=== PATIENT | male | born 1960 | race Caucasian/White ===

== ENCOUNTER 2018-04-18 13:12 | Outpatient (CLI) | payer BC | END 2018-04-18 13:13 | disposition home or self-care (01) | LOC: BICRAD 13:12 | PROVIDERS: ATTEND Family Medicine | DX: S46.912A Strain of unspecified muscle, fascia and tendon at shoulder and upper arm level, left arm, initial encounter (principal); M19.012 Primary osteoarthritis, left shoulder ==

== ENCOUNTER 2018-05-17 10:07 | Day surgery (SDC) | payer BC ==
[2018-05-16 12:03] VITALS: BMI 27.2
[2018-05-17] MEDS ORDERED: Midazolam HCl 2 mg/2 ml Vial ONE (11:53)
--- NOTE | 2018-05-17 13:58 | MRI ---
CERVICAL SPINE MRI NONCONTRAST: INDICATION: Cervical spine pain, radiculopathy. FINDINGS: Cervical spine vertebral body heights are maintained. There is no acute marrow edema or significant subluxation. Craniocervical junction is intact. No high-grade central canal stenosis at C1-2 or C2- 3 level. There is mild left subarticular zone narrowing at the C2-3 level due to osteophyte formatio n. C3-4: Mild disk-osteophyte formation is seen with effacement of the ventral thecal sac. There is mi ld left foraminal narrowing with crowding of the left C4 nerve root. No high-grade right foraminal s tenosis. C4-5: There is disk-osteophyte complex formation effacing the ventral thecal sac. Moderate left for aminal stenosis does crowd the left C5 nerve root. There is mild right foraminal narrowing. C5-6: Broad-based disk-osteophyte results in moderate central canal stenosis and ventral cord efface ment. There is also moderate bilateral neural foraminal stenosis. C6-7: Moderate narrowing of the central canal due to disk-osteophyte formation. There is moderate t o severe left and mild right neural foraminal stenosis on the basis of disk-osteophyte and uncinate p rocess hypertrophy. C7-T1: No significant compromise of central canal or neural foraminal narrowing. There is multilevel bilateral facet hypertrophy. No intrinsic cord signal abnormality of the cervical spine identified. IMPRESSION: Multilevel moderate degenerative change throughout the cervical spine as outlined above. POS: [facility]
--- NOTE | 2018-05-17 14:01 | MRI ---
NONCONTRAST MRI LUMBAR SPINE: Date: 05-17-18 History: Low back pain for 6-7 years. Patient has low back pain with radiculopathy. Comparison: None available. FINDINGS: There is a subcentimeter increased T2 weighted signal intensity focus in the superior pole right kidn ey which is difficult to further characterize due to small size but statistically likely represents a small cyst. Remainder of the retroperitoneal structures demonstrate a normal MRI appearance. Conus medullaris is normal in appearance and terminates at the level of the L1 vertebral body. Normal signal intensity is demonstrated in the bone marrow. L1-2: There is no disc bulge or disc herniation. Central spinal canal and neural foramina are patent. L2-3: There is no significant disc bulge or disc herniation. Central spinal canal and neural foramina are patent. L3-4: There is no significant disc bulge or disc herniation. There are facet hypertrophic changes pre sent at this level. There is minimal narrowing of the left neural foramen. The right neural foramen i s patent. L4-5: There is a broad based disc osteophyte complex with a small central disc protrusion. Increased T2 weighted signal intensity is seen along the posterior central margin of the intervertebral disc. F acet hypertrophic changes and mild ligamentous thickening are noted. There is moderate narrowing of t he central spinal canal with mild left sided neural foraminal narrowing. The right neural foramen is patent. L5-S1: There is no significant disc bulge or disc herniation. There are facet hypertrophic changes at this level, greater on the left. Minimal mass effect on the lateral aspect of the thecal sac without significant narrowing of the central spinal canal. There is minimal encroachment on each neural fora men due to the facet hypertrophic changes. There is an increased T2 weighted signal intensity just anterior to the L2-3 level which may represen t small nonspecific lymph nodes in this region. IMPRESSION: 1. Disc degenerative changes at the L4-5 level with moderate narrowing of the central spinal canal. POS: [facility]
== END 2018-05-17 14:35 | disposition home or self-care (01) ==
LOC: SDC/OP 10:07 → EDSTATUS 12:00 → SDC/OP 14:35
PROVIDERS: ATTEND Specialist
DX: M51.17 Intervertebral disc disorders with radiculopathy, lumbosacral region (principal); M48.061 Spinal stenosis, lumbar region without neurogenic claudication; M48.02 Spinal stenosis, cervical region; E11.9 Type 2 diabetes mellitus without complications; E78.5 Hyperlipidemia, unspecified; G89.29 Other chronic pain; F17.220 Nicotine dependence, chewing tobacco, uncomplicated; Z79.82 Long term (current) use of aspirin; Z79.899 Other long term (current) drug therapy; Z79.84 Long term (current) use of oral hypoglycemic drugs
CPT/HCPCS: 72141; 72148; J2250

== ENCOUNTER 2019-02-07 10:04 | Inpatient (IN) | payer BC ==
[2019-01-31 09:32] VITALS: BMI 25.1
[2019-02-07] MEDS ORDERED: Ketorolac Tromethamine 30 MG/ML VIAL ONE (11:16)
[2019-02-07] MEDS ORDERED: Glycopyrrolate 0.2 MG/ML 5 ML SYRINGE ONE (11:16)
[2019-02-07] MEDS ORDERED: Dexamethasone 20 MG/5 ML VIAL ONE (11:16)
[2019-02-07] MEDS ORDERED: Rocuronium Bromide 10 MG/ML (10ML VIAL) ONE (11:16)
[2019-02-07] MEDS ORDERED: PROPOFOL 200 MG/20 ML VIAL ONE (11:16)
[2019-02-07] MEDS ORDERED: Ondansetron PF 4 MG/2 ML Vial ONE (11:16)
[2019-02-07] MEDS ORDERED: ePHEDrine 50 MG/ML VIAL ONE (11:16)
[2019-02-07] MEDS ORDERED: Lidocaine 1% PF 5 ML VIAL ONE (11:16)
[2019-02-07] MEDS ORDERED: PHENYLEPHRINE-NS 100 MCG/ML 10 ML SYRINGE ONE (11:16)
[2019-02-07] MEDS ORDERED: Thrombin 5000 UNITS/5 ML VIAL ONE ×2 (12:18→12:47)
[2019-02-07] MEDS ORDERED: Sodium Chloride 0.9% 10 ML ONE (12:44)
[2019-02-07] MEDS ORDERED: Fentanyl 100 MCG/2 ML VIAL ONE ×3 (13:49→20:11)
[2019-02-07] MEDS ORDERED: Morphine 4 MG/ML VIAL SLOW IVP PRN (16:30)
[2019-02-07] MEDS ORDERED: HYDROcodone/Acetaminophen 7.5/325 mg Tablet PO PRN (16:30)
[2019-02-07] MEDS ORDERED: Promethazine HCl 25 MG/ML VIAL IM PRN ×2 (16:30→16:31)
[2019-02-07] MEDS ORDERED: Mag-Al 1200 mg/1200 mg/30 ML UDCUP PO PRN (16:30)
[2019-02-07] MEDS ORDERED: Acetaminophen/Codeine 30-300mg Tablet PO PRN (16:30)
[2019-02-07] MEDS ORDERED: Fleet Enema 133 ML BOT PR PRN (16:30)
[2019-02-07] MEDS ORDERED: Milk Of Magnesia 30 ML UDCUP PO PRN (16:30)
[2019-02-07] MEDS ORDERED: Bisacodyl 10 MG SUPP PR PRN (16:30)
[2019-02-07] MEDS ORDERED: Acetaminophen 325 MG TAB PO PRN (16:30)
[2019-02-07] MEDS ORDERED: Promethazine HCl 25 MG/ML VIAL SLOW IVP PRN (16:31)
[2019-02-07] MEDS ORDERED: HYDROmorphone 2 MG/ML VIAL SLOW IVP PRN (16:31)
[2019-02-07] MEDS ORDERED: Ondansetron HCl/PF 4 MG/2 ML Vial IVP PRN (16:31)
[2019-02-07] MEDS ORDERED: Meperidine HCl/PF 25 MG/ML VIAL SLOW IVP PRN (16:31)
[2019-02-07] MEDS ORDERED: tiZANidine HCl 4 MG TAB ONE (18:45)
[2019-02-07] MEDS ORDERED: CEFAZOLIN 2 GM in Premix Bag 1 BAG IVPB SCH (20:00)
[2019-02-07] MEDS ORDERED: Gabapentin 300 MG CAP PO SCH (21:00)
[2019-02-07] MEDS ORDERED: Tamsulosin HCl 0.4 MG CAP PO SCH (21:00)
[2019-02-07] MEDS ORDERED: Lisinopril 2.5 MG TAB PO SCH (21:00)
[2019-02-07] MEDS ORDERED: Pravastatin Sodium 40 MG TAB PO SCH (21:00)
[2019-02-07] MEDS ORDERED: Finasteride 5 MG TAB PO SCH (21:00)
[2019-02-07] MEDS: Sodium Chloride 0.9% 1,000 ML IV SCH (21:47)
[2019-02-07] MEDS: metFORMIN 500 MG TAB PO SCH (22:03)
[2019-02-07] MEDS: CEFAZOLIN 2 GM in Premix Bag 1 BAG IVPB SCH (22:05)
[2019-02-07] MEDS: traMADol HCl 50 MG TAB PO PRN (23:43)
[2019-02-07] MEDS: tiZANidine HCl 4 MG TAB PO PRN (23:43)
[2019-02-08] MEDS: Sodium Chloride 0.9% 1,000 ML IV SCH (05:44)
[2019-02-08] MEDS: CEFAZOLIN 2 GM in Premix Bag 1 BAG IVPB SCH (06:04)
[2019-02-08] MEDS: metFORMIN 500 MG TAB PO SCH (08:55)
[2019-02-08] MEDS ORDERED: Gabapentin 300 MG CAP PO SCH (09:00)
--- NOTE | 2019-02-08 09:52 | PRG ---
DATE OF SERVICE: 02/08/2019 SUBJECTIVE: Mr. Gavin is postoperative day 1 from C5 through C7 ACDF. He is doing very well with improvement in his arm symptoms and in his scapular pain. He is tolerating oral diet with satisfactory output from his drain. Good strength. We will not remove his drain. We went over both intra and postoperative issues. He will be dismissed. Job ID: [id number]
[2019-02-08] MEDS: tiZANidine HCl 4 MG TAB PO PRN (10:27)
[2019-02-08] MEDS: traMADol HCl 50 MG TAB PO PRN (10:27)
--- NOTE | 2019-02-08 10:33 | OP ---
DATE OF PROCEDURE: 02/07/2019 OPERATING ROOM: 12 ECONOMICS DEPARTMENT CHAIR: Holger Gupta PA-C. PRE-PROCEDURE DIAGNOSIS: Cervical stenosis with neck and arm pain. POSTPROCEDURE DIAGNOSIS: Cervical stenosis with neck and arm pain. PROCEDURES PERFORMED: 1. C5-C6 and C6-C7 anterior diskectomies for decompression of spinal cord and nerve roots. 2. Interbody spacer placement, C5-C6 and C6-C7 for arthrodesis packed with local bone autograft obtained from same incision allograft and preparation of endplates. 3. Anterior cervical plate and screw fixation C5, C6, and C7. 4. Use of operative microscope for microdissection. DESCRIPTION OF PROCEDURE: After informed consent was obtained from the patient, the patient was brought to the OR. Proper patient, pause, and identification were carried out. He was placed in excellent general endotracheal anesthesia and positioned supine on the OR table. All appropriate points were padded. Right anterior oblique jeannette was drawn out. This region was sterilely cleansed, prepared, and draped. Proper patient, pause, and identification were carried out. The wound was then opened with combination of sharp, monopolar, and blunt dissection, we proceeded lateral to the tracheoesophageal bundle, medial to the right carotid sheath. We identified the prevertebral layer of deep cervical fascia and the longus colli muscle and these were swept laterally. Distraction at C5-C6 then occurred following localization. We then brought the microscope in for microdissection. Diskectomy at C5-C6 was then performed with decompression of spinal cord and nerve roots. Disk material was removed. Interbody spacer plate was placed after preparation of the endplates. We then removed the distraction at C5-C6 and distraction at C6-C7 then occurred with diskectomy and decompression of spinal cord and nerve roots and in preparation of the endplates. Interbody spacer was then placed following preparation of endplates. Copious irrigation occurred. We maximized hemostasis. We then removed the microscope and anterior cervical plate and screw fixation with final tightening then occurred at C5, C6, and C7. Copious irrigation occurred throughout as did maximizing hemostasis. The wound was then closed in anatomic layers over drain. The patient then emerged from anesthesia. Job ID: [id number]
[2019-02-08 12:25] VITALS: BP 96/60; TEMP 98.1
== END 2019-02-08 12:05 | disposition home or self-care (01) | DRG 473 ==
LOC: SDC 10:04 → SURG A 21:12
PROVIDERS: ADMIT Surgery; ATTEND Surgery
PROC: 0RG20A0 Fusion of 2 or more Cervical Vertebral Joints with Interbody Fusion Device, Anterior Approach, Anterior Column, Open Approach (ICD-10-PCS; principal; 2019-02-07)
PROC: 0RB30ZZ Excision of Cervical Vertebral Disc, Open Approach (ICD-10-PCS; 2019-02-07)
DX: M48.02 Spinal stenosis, cervical region (principal)
CPT/HCPCS: 76000; C1713; C1776; J1100; J1885; J2001; J2405; J2704; J3010; J3490

== ENCOUNTER 2019-02-09 11:38 | Emergency (ER) | payer BC ==
[2019-02-09 12:20] LABS: Bilirubin Negative (Negative); Blood, Urine Moderate (Negative); Clarity Clear (Clear); Glucose, Urine (Dipstick) Negative (Negative); Leukocyte Negative (Negative); Nitrite Negative (Negative); Protein, Urine (Dipstick) Negative (Neg-Trace); Specific Gravity, Urine 1.009 (1.002-1.036); Urobilinogen 0.2 mg/dL (0.2-1.0); pH, Urine 5.5 (5.0-9.0)
[2019-02-09 12:36] LABS: Bacteria/HPF None Seen HPF (None Seen); RBC/HPF 0-3 HPF (0-3); Squamous Epithelial 0-3 HPF (0-3); WBC/HPF 0-3 HPF (0-3)
== END 2019-02-09 12:47 | disposition home or self-care (01) ==
LOC: SCSER 11:38
DX: M96.89 Other intraoperative and postprocedural complications and disorders of the musculoskeletal system (principal); R33.9 Retention of urine, unspecified
CPT/HCPCS: 51702; 81003; 81015

== ENCOUNTER 2019-02-14 02:05 | Emergency (ER) | payer BC ==
[2019-02-14 02:47] LABS: Bilirubin Negative (Negative); Blood, Urine Moderate (Negative); Clarity Slightly Cloudy (Clear); Glucose, Urine (Dipstick) Negative (Negative); Leukocyte Negative (Negative); Nitrite Negative (Negative); Protein, Urine (Dipstick) Negative (Neg-Trace); pH, Urine 5.5 (5.0-9.0)
[2019-02-14 02:48] LABS: Bacteria/HPF None Seen HPF (None Seen); Hyaline Casts/LPF NONE SEEN LPF (0-3 Hyaline); Squamous Epithelial None Seen HPF (0-3); WBC/HPF None Seen HPF (0-3)
== END 2019-02-14 03:08 | disposition home or self-care (01) ==
LOC: SCSER 02:05
DX: R33.9 Retention of urine, unspecified (principal); Z79.84 Long term (current) use of oral hypoglycemic drugs; Z79.899 Other long term (current) drug therapy
CPT/HCPCS: 51702; 81003; 81015

== ENCOUNTER 2019-10-24 10:53 | Outpatient (CLI) | payer BC ==
--- NOTE | 2019-10-24 12:09 | RAD ---
XR Lumbar Spine Bending Min 4V History: Lumbar stenosis. Back pain. Comparison: MRI lumbar spine 2018 Findings: L5 appears to be a lumbosacral transitional vertebra with the enlarged L5 transverse proces ses disease with the sacrum. Mild L4-5 and L3-4 degenerative disc space narrowing. High-grade L4/L5 interspinous narrowing with cortical sclerosis. No acute fracture. Multiple bridging anterior osteoph ytes of the thoracic spine. No abnormal translation with flexion or extension. Moderate facet arthropathy L3-S1. Impression: IIIb lumbosacral transitional vertebra with moderate degenerative changes described. No a bnormal translation with flexion or extension.
== END 2019-10-24 10:54 | disposition home or self-care (01) ==
LOC: BICRAD 10:53
PROVIDERS: ATTEND Surgery
DX: M51.16 Intervertebral disc disorders with radiculopathy, lumbar region (principal); M48.062 Spinal stenosis, lumbar region with neurogenic claudication; M47.26 Other spondylosis with radiculopathy, lumbar region
CPT/HCPCS: 72120

== ENCOUNTER 2019-11-03 09:19 | Outpatient (CLI) | payer BC ==
[2019-01-31 11:23] LABS: Hemoglobin 14.3 g/dL (14.0-18.0); Mean Corpuscular HGB CONC 34.5 g/dL (32.0-36.0); Mean Corpuscular Hemoglobin 32.3 pg (27.0-31.0); Mean Corpuscular Volume 93.5 fL (78.0-98.0); Mean Platelet Volume 6.8 fL (7.4-10.4); Platelet Count 188 thou/uL (130-400); Red Blood Cell (RBC) Count 4.45 mill/uL (4.70-6.10); White Blood Cell (WBC) Count 3.9 thou/uL (4.8-10.8)
[2019-01-31 11:30] LABS: PTT 29.4 SEC (22.9-36.1); Prothrombin Time 13.2 SEC (12.0-14.7)
[2019-01-31 11:48] LABS: Anion Gap 12 mmol/L (10-20); BUN (Urea Nitrogen) 16 mg/dL (8.4-25.7); Calc. Creatinine Clearance 0 mL/min (70-130); Calcium 9.5 mg/dL (7.8-10.44); Carbon Dioxide 29 mmol/L (22-29); Chloride 102 mmol/L (98-107); Estimated GFR-MDRD 70; Glucose 174 mg/dL (70-105); Potassium 4.5 mmol/L (3.5-5.1); Sodium 138 mmol/L (136-145)
--- NOTE | 2019-02-03 16:31 | EKG ---
Test Reason : Blood Pressure : / mmHG Vent. Rate : 065 BPM Atrial Rate : 065 BPM P-R Int : 168 ms QRS Dur : 092 ms QT Int : 390 ms P-R-T Axes : 070 104 033 degrees QTc Int : 405 ms Normal sinus rhythm Rightward axis Borderline ECG No previous ECGs available Confirmed by DR. Timo BYRNE ([id number]) on 02/03/2019 4:30:43 PM Referred By: ZHANG Confirmed By:DR. Timo BYRNE
[2019-11-03 10:21] LABS: Hemoglobin 13.9 g/dL (14.0-18.0); Mean Corpuscular Hemoglobin 32.1 pg (27.0-31.0); Mean Corpuscular Volume 91.6 fL (78.0-98.0); Mean Platelet Volume 6.5 fL (7.4-10.4); Platelet Count 188 thou/uL (130-400); RBC Distribution Width 11.9 % (11.5-14.5); Red Blood Cell (RBC) Count 4.34 mill/uL (4.70-6.10); White Blood Cell (WBC) Count 5.7 thou/uL (4.8-10.8)
[2019-11-03 10:29] LABS: PTT 30.7 SEC (22.9-36.1)
[2019-11-03 10:35] LABS: Prothrombin Time 13.1 SEC (12.0-14.7)
[2019-11-03 10:54] LABS: Anion Gap 16 mmol/L (10-20); BUN (Urea Nitrogen) 13 mg/dL (8.4-25.7); Calc. Creatinine Clearance 0 mL/min (70-130); Calcium 9.1 mg/dL (7.8-10.44); Carbon Dioxide 25 mmol/L (22-29); Chloride 102 mmol/L (98-107); Estimated GFR-MDRD 79; Glucose 227 mg/dL (70-105); Potassium 4.6 mmol/L (3.5-5.1); Sodium 138 mmol/L (136-145)
== END 2019-11-03 09:20 | disposition home or self-care (01) ==
LOC: LABBT 09:19
PROVIDERS: ATTEND Surgery
DX: Z01.818 Encounter for other preprocedural examination (principal); M51.16 Intervertebral disc disorders with radiculopathy, lumbar region; M48.061 Spinal stenosis, lumbar region without neurogenic claudication; M48.02 Spinal stenosis, cervical region; M54.12 Radiculopathy, cervical region
CPT/HCPCS: 80048; 85027; 85610; 85730; 93005; 93010

== ENCOUNTER 2020-10-07 10:07 | Day surgery (SDC) | payer BC ==
[2020-10-04 11:08] VITALS: BMI 26.6
[2020-10-07] MEDS ORDERED: PROPOFOL 200 MG/20 ML VIAL ONE (10:18)
--- NOTE | 2020-10-07 11:33 | RAD ---
RADIOGRAPH LUMBAR SPINE 2 VIEWS: DATE: 10/07/2020 HISTORY: 59-year-old male with chronic low back pain. Preoperative evaluation. FINDINGS: There are 5 lumbar-type vertebrae, but L5 has bilaterally dysplastic transverse processes that are fu sed with the lateral sacral alae.. Alignment is normal. Vertebral body heights and disc spaces are maintained. There are flowing bridging osteophytes along the lower thoracic spine, and lumbar spine. There is laminectomy defect at midline at L4-5. IMPRESSION: 1) lumbosacral transitional vertebra type IIIB 2) status post midline laminectomy at L4-5. 3) DISH (diffuse idiopathic skeletal hyperostosis).
[2020-10-07] MEDS ORDERED: Midazolam HCl 2 mg/2 ml Vial ONE (11:59)
[2020-10-07] MEDS ORDERED: Magnevist 469MG/ML 20 ML VIAL ONE (12:35)
--- NOTE | 2020-10-07 14:00 | MRI ---
MRI LUMBAR SPINE WITH AND WITHOUT CONTRAST: DATE: 10/07/2020 HISTORY: 59-year-old male with lumbar radiculopathy COMPARISON: 10/07/2020 TECHNIQUE: Multiple sequences obtained in axial and sagittal planes, pre and post IV injection of gadolinium-bas ed contrast agent. FINDINGS: There is a transitional vertebra at the lumbosacral junction. After careful review of the chest radiograph of 03/07/2010 and the multiple radiographs of the lumbar spine of 05/10/2015, 10/24/2019, and 10/07/2020, it is now realized that the patient has 12 fully formed paired ribs, caudal to which there are only 4 lumbar-type vertebrae. This is contrary to the l abeling system used on all prior studies, including my report of the plain radiograph earlier today image in which I incorrectly stated that there is a lumbosacral transitional vertebra type IIIB. Inst ead, what was thought to be L5 fused with S1 is actually a standard S1.. The L4-S1 junction has a normal morphology of a L5-S1 junction. Vertebral body heights are maintained. Bone marrow signal is normal. No high-grade disc space narrowi ng at any level. No spondylolisthesis. Conus medullaris terminates at T12-L1. T11/12: Essentially normal. T12-L1:Essentially normal L1-2:Mild facet DJD. Disc space maintained. No central or neural foraminal stenosis. L2-3:Disc space maintained. Mild bilateral facet DJD. No high-grade central spinal canal stenosis. Mi nimal right and mild to moderate left neural foraminal stenosis due to the mild disc bulge and very mild facet hypertrophy. L3-4:No high-grade disc space narrowing. No midline laminectomy defect results in relief of the previ ously demonstrated central spinal canal stenosis. Generous caliber of spinal canal and thecal sac. Small shallow central and bilateral paracentral disc protrusion with midline posterior annular fissur e and/or scar, which indents the thecal sac. Left lateral recess stenosis due to surrounding scar tissue around left L4 nerve root. Moderate bilateral neural foraminal stenosis. Mild right and mild t o moderate left facet DJD. L4-S1:Disc space maintained. Moderate bilateral facet DJD, left greater than right. Moderate bilatera l neural foraminal stenosis, left worse than right. No central spinal canal stenosis. IMPRESSION: 1) there are only 4 lumbar-type vertebrae. Previous labeling of levels (including previous designatio n of lumbosacral transitional vertebra type IIIB) were all in correct. 2) at L3-4 (previously labeled as L4-5), there has been interval midline laminectomy, relieving the p revious central spinal canal stenosis. 3) at L3-4, there is left lateral recess stenosis potentially impinging on the left L4 nerve root due to what appears to be mostly postsurgical scar tissue or granulation tissue. 4) high-grade bilateral facet osteoarthrosis at L4-S1. 5) no high-grade central spinal canal stenosis at any level.
== END 2020-10-07 14:40 | disposition home or self-care (01) ==
LOC: SDC/OP 10:07
PROVIDERS: ATTEND Surgery
DX: M54.16 Radiculopathy, lumbar region (principal); M48.16 Ankylosing hyperostosis [Forestier], lumbar region; Z79.82 Long term (current) use of aspirin; Z79.84 Long term (current) use of oral hypoglycemic drugs; Z79.899 Other long term (current) drug therapy
CPT/HCPCS: 72100; 72158; 82565; A9579; J2250; J2704